=== PATIENT | male | born 2000 | race Caucasian/White ===

== ENCOUNTER 2022-01-03 21:05 | Emergency (ER) | payer BC ==
--- NOTE | 2022-01-03 21:17 | NUR ---
Patient walked in the ER with cc of N/V and diarrhea that started at 1AM today, as well as generalized weakness and unable to keep any food up. Stated that he just got back from a trip in [place] yesterday. Patient [id number].
[2022-01-03] MEDS ORDERED: FAMOTIDINE. 20 MG/2 ML VIAL IV ONE ×2 (21:30→21:32)
[2022-01-03] MEDS ORDERED: IV NORMAL SALINE 1000 ML BAG IV ONE (21:30)
[2022-01-03] MEDS ORDERED: ONDANSETRON 4 MG/2 ML VIAL IV ONE (21:30)
--- NOTE | 2022-01-03 21:30 | NUR ---
Dr. Cordon on bedside for MSE.
[2022-01-03 21:42] LABS: HEMATOCRIT 43.9 % (36.7-47.1); MEAN CORPUSCULAR HEMOGLOBIN 32.1 uug (23.8-33.4); MEAN CORPUSCULAR VOLUME 92.1 fL (73.0-96.2); PLATELET COUNT (AUTO) 254 K/uL (152-348)
[2022-01-03 21:48] LABS: CREATININE 1.2 mg/dL (0.6-1.3); POTASSIUM 3.8 mmol/L (3.5-5.1)
[2022-01-03 21:54] LABS: BILIRUBIN,DIRECT 0.2 mg/dL (0.0-0.2); BILIRUBIN,TOTAL 1.1 mg/dL (0.2-1.0); TOTAL PROTEIN, SERUM 7.4 g/dL (6.4-8.2)
--- NOTE | 2022-01-03 22:41 | NUR ---
PO challenge done, patient tolerated well. Denies any N/V.
--- NOTE | 2022-01-03 23:02 | NUR ---
Dr. Cordon on bedside.
[2022-01-03] MEDS ORDERED: CIPR-262 PO (23:20)
[2022-01-03] MEDS ORDERED: ONDA4TAB11 PO (23:20)
[2022-01-03] MEDS ORDERED: FAMO-132 PO (23:20)
--- NOTE | 2022-01-03 23:32 | NUR ---
Patient discharged to home in stable condition. Written and verbal after care instructions given. Patient verbalizes understanding of instructions. Stressed follow up or return to ER for worsening s/s. Patient ambulated fr the ER with steady gait. All belongings with patient.
[2022-01-03 23:33] VITALS: BP 129/68
== END 2022-01-03 23:32 | disposition home or self-care (01) ==
LOC: ER 21:09
DX: K52.9 Noninfective gastroenteritis and colitis, unspecified (principal); E86.0 Dehydration
CPT/HCPCS: 99284; 96374; 96361; 80076; 80048; 83690; 85025; 36415; J3490; J7040; A4663